=== PATIENT | female | born 1965 | race Caucasian/White ===

== ENCOUNTER 2022-11-09 08:19 | Emergency (ER) | payer MEDICAID ==
[~2022-11-09] VITALS: Ht 154.9 cm; Wt 47.6 kg
[2022-11-09 08:36] VITALS: BP_SYST 111; PULSE 78; RESP 18; TEMP 97; O2SAT 96
--- NOTE | 2022-11-09 08:52 | NUR ---
DR JADA GARVIN FOR EXAM
[2022-11-09] MEDS ORDERED: MORPHINE 2 MG/ML INJ. SYRINGE IVP ONE ×2 (09:00→12:30)
[2022-11-09] MEDS ORDERED: NACL IV ONE ×2 (09:00)
[2022-11-09] MEDS ORDERED: NACL 0.9% 1,000 ML IV ONE ×2 (09:00→12:00)
[2022-11-09] MEDS ORDERED: KETAMINE HCL IV ONE ×2 (09:00)
[2022-11-09] MEDS ORDERED: NS IV ONE ×2 (09:00)
--- NOTE | 2022-11-09 09:02 | NUR ---
57-year-old female past medical history significant for inoperable thyroid cancer presents with complaint of generalized malaise nausea total body pain and weakness. Patient denies any chest pain or shortness of breath. Symptoms are moderate in severity nothing seems to make it better or worse provoking event appears to be an operable thyroid cancer. Pt lives at home alone, but has son who is also her caregiver, but only after he works all day. Pt states she is trying to get in to [facility] but having issues. [employer] referral made. Saftey Precautions in place, will cont ot monitpr closely.
[2022-11-09 09:46] LABS: BASOPHILS # (AUTO) 0.1 K/uL (0.0-0.2); BASOPHILS % (AUTO) 1.8 % (0.0-2.0); EOSINOPHILS # (AUTO) 0.1 K/uL (0.0-0.4); EOSINOPHILS % (AUTO) 2.6 % (0.0-4.0); HEMATOCRIT 31.4 % (36-48); HEMOGLOBIN 10.6 g/dL (12.0-16.0); LYMPHOCYTES # (AUTO) 1.2 K/uL (1.0-5.5); MEAN CORPUSCULAR HEMOGLOBIN 33 pg (27-31); MEAN CORPUSCULAR HGB CONC 34 % (32-36); MEAN CORPUSCULAR VOLUME 98 fL (79.0-98.0); MONOCYTES # (AUTO) 0.4 K/uL (0.0-1.0); MONOCYTES % (AUTO) 6.3 % (1.7-9.3); NEUTROPHILS # (AUTO) 3.9 K/uL (1.8-7.7); NEUTROPHILS % (AUTO) 68.3 % (40.0-70.0); PLATELET COUNT (AUTO) 247 K/uL (130-430); RED CELL DISTRIBUTION WIDTH 16.2 % (9.0-15.0); WHITE BLOOD COUNT (AUTO) 5.7 K/uL (4.8-10.8)
[2022-11-09] MEDS ORDERED: KETAMINE HCL IN 0.9 % NACL 50 MG/5 ML SYRINGE ONE (09:50)
--- NOTE | 2022-11-09 09:55 | NUR ---
MEDICATED ORDERED, MONITORING CLOSELY FOR ANY ADVSER SIDE EFFECTS. PT ON TELE MONITOR AND PLACED ON 02-2L VIA NC FOR COMFORT. VSS
[2022-11-09 10:09] LABS: ANION GAP 5 (5-15); CALCIUM 7.7 mg/dL (8.4-11.0); CHLORIDE 101 mmol/L (98-107); CREATININE 1.42 mg/dL (0.55-1.30); GFR AFRICAN AMERICAN 49 mL/min (>90); GLUCOSE 67 mg/dL (74-106); UREA NITROGEN, BLOOD 17 mg/dL (8-21)
[2022-11-09 10:11] LABS: PROTHROMBIN TIME 10.4 SECS (9.5-12.5)
--- NOTE | 2022-11-09 10:15 | NUR ---
PT RPEORTS PAIN DECREASED PAIN FROM 10/10 TO 5/10 AT THIS TIME, VITAL SIGNS HAVE REMAINED STABLE. RESP EVEN AND UNLABORED, ON 3L VIA NC @99%
[2022-11-09 10:16] LABS: ALANINE AMINOTRANSFERASE 14 U/L (12-78); ALBUMIN 3.4 g/dL (3.4-4.8); ASPARTATE AMINOTRANSFERASE 43 U/L (10-37); TOTAL BILIRUBIN 0.3 mg/dL (0.0-1.0)
--- NOTE | 2022-11-09 11:07 | NUR ---
PT CALLS FOR NURSE, REQUESTING MORE PAIN MEDS FOR LOWER BACK PAIN. DR ELIAS INFORMED.
--- NOTE | 2022-11-09 11:12 | NUR ---
PT TO CT SCAN
[2022-11-09 11:32] LABS: BILIRUBIN,URINE NEGATIVE (NEGATIVE); CLARITY/URINE SL CLOUDY (CLEAR); COLOR,URINE YELLOW (YELLOW); GLUCOSE,URINE NEGATIVE (NEGATIVE); KETONES,URINE NEGATIVE (NEGATIVE); LEUKOCYTE ESTERASE ,URINE 2+ (NEGATIVE); NITRITE, URINE NEGATIVE (NEGATIVE); PROTEIN URINE NEGATIVE (NEGATIVE); UROBILINOGEN,URINE 0.2 (0.2-1.0)
[2022-11-09 11:34] LABS: BLOOD, URINE TRACE (NEGATIVE)
[2022-11-09 11:45] LABS: BACTERIA,URINE MODERATE /HPF (None Seen)
[2022-11-09] MEDS ORDERED: OXYC-128 PO (12:14)
[2022-11-09 13:49] VITALS: BP_SYST 117; PULSE 62; RESP 16; TEMP 97; O2SAT 98
--- NOTE | 2022-11-09 13:49 | NUR ---
Patient given written and verbal discharge instructions and verbalizes understanding. ER MD discussed with patient the results and treatment provided. Patient in stable condition. ID arm band removed. IV catheter removed intact and dressing applied, no active bleeding. Rx of PERCOCET given. Patient educated on pain management and to follow up with PMD. Pain Scale 0/10. Opportunity for questions provided and answered. Medication side effect fact sheet provided.
== END 2022-11-09 13:49 | disposition home or self-care (01) ==
LOC: SED 08:19
DX: M79.10 Myalgia, unspecified site (principal); R11.0 Nausea; R53.1 Weakness; Z85.850 Personal history of malignant neoplasm of thyroid; Z79.899 Other long term (current) drug therapy
CPT/HCPCS: 99285; 96374; 70450; 71045; 96361; 96375; 80053; 81000; 85025; 85610; 85730; 87040; 87086; 84484; 36415; 93005; 76376; 96376; 83605; J2270; J7030

== ENCOUNTER 2023-01-31 07:23 | Emergency (ER) | payer MEDICAID ==
[~2023-01-31] VITALS: Ht 154.9 cm; Wt 47.6 kg
[~2023-01-31 07:23] MED LIST: OXYC-128 PO
[2023-01-31 07:27] VITALS: BP_SYST 103; PULSE 86; RESP 18; TEMP 97.8; O2SAT 94
[2023-01-31] MEDS ORDERED: IBUPROFEN 600 MG TABLET PO ONE (08:00)
[2023-01-31 08:01] LABS: HEMATOCRIT 28.6 % (36-48); HEMOGLOBIN 9.6 g/dL (12.0-16.0); MEAN CORPUSCULAR HEMOGLOBIN 34 pg (27-31); MEAN CORPUSCULAR HGB CONC 34 % (32-36); MEAN CORPUSCULAR VOLUME 102 fL (79.0-98.0); PLATELET COUNT (AUTO) 214 K/uL (130-430); RED BLOOD CELL COUNT(AUTO) 2.79 MIL/uL (4.2-6.2); RED CELL DISTRIBUTION WIDTH 17.1 % (9.0-15.0); WHITE BLOOD COUNT (AUTO) 4.7 K/uL (4.8-10.8)
[2023-01-31 08:19] LABS: ANION GAP 6 (5-15); CALCIUM 8.8 mg/dL (8.4-11.0); CARBON DIOXIDE 31 mmol/L (23-29); CHLORIDE 98 mmol/L (98-107); CREATININE 1.42 mg/dL (0.55-1.30); GFR AFRICAN AMERICAN 49 mL/min (>90); GLUCOSE 77 mg/dL (74-106); POTASSIUM 3.7 mmol/L (3.5-5.1); SODIUM SERUM 135 mmol/L (136-145); UREA NITROGEN, BLOOD 14 mg/dL (8-21)
[2023-01-31 08:23] LABS: ALANINE AMINOTRANSFERASE 28 U/L (12-78); ALBUMIN 3.4 g/dL (3.4-4.8); ASPARTATE AMINOTRANSFERASE 51 U/L (10-37); FREE T4 (FREE THYROXINE) 0.4 ng/dL (0.6-1.6); THYROID STIMULATING HORMONE 183.08 uIu/mL (0.34-4.82); TOTAL BILIRUBIN 0.3 mg/dL (0.0-1.0); TOTAL PROTEIN, SERUM 7.2 g/dL (6.4-8.3)
[2023-01-31 08:24] LABS: PROTHROMBIN TIME 10.2 SECS (9.5-12.5)
[2023-01-31 08:27] LABS: GFR NON AFRICAN-AMERICAN 41 mL/min (>90)
[2023-01-31 08:38] LABS: ANISOCYTOSIS 1+; BASOPHILS % (MANUAL) 0 % (0-2); EOSINOPHILS % (MANUAL) 1 % (0-7); LYMPHOCYTES % (MANUAL) 31 % (20-46); MONOCYTES % (MANUAL) 3 % (0-11); PLATELET ESTIMATE ADEQUATE (ADEQUATE)
[2023-01-31] MEDS ORDERED: MORPHINE 2 MG/ML INJ. SYRINGE IM ONE (08:45)
[2023-01-31 10:12] VITALS: BP_SYST 102; PULSE 73; RESP 18; TEMP 97.9; O2SAT 92
== END 2023-01-31 10:15 | disposition home or self-care (01) ==
LOC: SED 07:23
DX: R06.02 Shortness of breath (principal); R22.1 Localized swelling, mass and lump, neck; J44.9 Chronic obstructive pulmonary disease, unspecified; Z79.899 Other long term (current) drug therapy
CPT/HCPCS: 99285; 70490; 71045; 85027; 80053; 83880; 84439; 84443; 85007; 85610; 85730; 84484; 36415; 93005; 76376; 96372; 83605; 82397; J2270

== ENCOUNTER 2023-02-17 06:43 | Emergency (ER) | payer MEDICAID ==
[~2023-02-17] VITALS: Ht 154.9 cm; Wt 48.5 kg
[2023-02-17 06:48] VITALS: BP_SYST 107; PULSE 107; RESP 17; TEMP 97.2; O2SAT 97
[2023-02-17] MEDS ORDERED: KETOROLAC TROMETHAMINE 30 MG VIAL IM ONE (09:15)
[2023-02-17 10:03] VITALS: BP_SYST 96; PULSE 88; RESP 16; TEMP 98.1; O2SAT 96
== END 2023-02-17 11:13 | disposition home or self-care (01) ==
LOC: SED 06:43
DX: S30.0XXA Contusion of lower back and pelvis, initial encounter (principal); S09.90XA Unspecified injury of head, initial encounter; J44.9 Chronic obstructive pulmonary disease, unspecified; Z85.850 Personal history of malignant neoplasm of thyroid; Z79.899 Other long term (current) drug therapy; W22.8XXA Striking against or struck by other objects, initial encounter; Y93.89 Activity, other specified; Y92.89 Other specified places as the place of occurrence of the external cause; Y99.8 Other external cause status
CPT/HCPCS: 99285; 70450; 72220; 73502; 72125; 76376; 96372; 72170; J1885